=== PATIENT | male | born 1970 | race Caucasian/White ===

== ENCOUNTER 2019-10-30 11:25 | Emergency (ER) | payer OTHER ==
[~2019-10-30] VITALS: Ht 172.7 cm; Wt 148.3 kg
[2019-10-30] MEDS ORDERED: METFORMIN HCL500 M3 PO (11:38)
[2019-10-30] MEDS ORDERED: BYSTOLIC10 MG PO (11:39)
[2019-10-30] MEDS ORDERED: TRESIBA100 UNIT/1 SUBQ (11:39)
[2019-10-30] MEDS ORDERED: INVOKANA300 MG PO (11:40)
[2019-10-30] MEDS ORDERED: ROBAXIN 750 MG750 MG PO (12:40)
[2019-10-30] MEDS ORDERED: MEDROLDOSEPACK PO (12:40)
[2019-10-30] MEDS ORDERED: TYLENOL WITH CO1 TA1 PO (12:40)
[2019-10-30 12:53] VITALS: BP 172/92
== END 2019-10-30 12:54 | disposition home or self-care (01) ==
LOC: M.ERS 11:25
DX: S16.1XXA Strain of muscle, fascia and tendon at neck level, initial encounter (principal); E11.9 Type 2 diabetes mellitus without complications; I10 Essential (primary) hypertension; E66.9 Obesity, unspecified; Z68.42 Body mass index [BMI] 45.0-49.9, adult; Z79.4 Long term (current) use of insulin; V89.2XXA Person injured in unspecified motor-vehicle accident, traffic, initial encounter; Y93.89 Activity, other specified; Y92.89 Other specified places as the place of occurrence of the external cause; Y99.8 Other external cause status